=== PATIENT | male | born 1960 | race Caucasian/White ===

== ENCOUNTER 2018-02-14 08:45 | Inpatient (IN) | payer BC ==
[2018-02-14] MEDS ORDERED: Iohexol 240 (50 ml) PO STA (09:02)
[2018-02-14] MEDS ORDERED: Sodium Chloride 0.9% 1,000 ML IV ONE (09:02)
--- NOTE | 2018-02-14 09:10 | C.PDOC ---
History Of Present Illness 57 y/o male pt with PMHx of diverticulitis presents to the ER complaining of left abdominal pain for x5 days. Associated sx includes constipation. Pt denies fever, chills, nausea, vomiting, back pain, dysuria and hematuria. Pt notes he visited his doctor yesterday and received antibiotics. Time Seen by Provider: 02/14/18 08:48 Chief Complaint (Nursing): Abdominal Pain History Per: Patient History/Exam Limitations: no limitations Onset/Duration Of Symptoms: Days (x5) Current Symptoms Are (Timing): Still Present Location Of Pain/Discomfort: LLQ Past Medical History Reviewed: Historical Data, Nursing Documentation, Vital Signs Vital Signs: Last Vital Signs Temp 99.1 F 02/14/18 08:47 Pulse 100 H 02/14/18 08:47 Resp 18 02/14/18 08:47 BP 150/92 H 02/14/18 08:47 Pulse Ox 97 02/14/18 08:47 - Medical History PMH: Diverticulitis (treated 3 years ago), HTN, Hypercholesterolemia, Peripheral Edema Family History: States: Unknown Family Hx - Social History Hx Tobacco Use: Yes Hx Alcohol Use: Yes Hx Substance Use: No - Immunization History Hx Tetanus Toxoid Vaccination: No Hx Influenza Vaccination: No Hx Pneumococcal Vaccination: No Review Of Systems Except As Marked, All Systems Reviewed And Found Negative. Constitutional: Negative for: Fever, Chills Gastrointestinal: Positive for: Abdominal Pain (LLQ), Constipation. Negative for: Nausea, Vomiting Genitourinary: Negative for: Dysuria, Hematuria Musculoskeletal: Negative for: Back Pain Physical Exam - Physical Exam Appears: Non-toxic, No Acute Distress Skin: Normal Color, Warm, Dry Head: Normacephalic Eye(s): bilateral: Normal Inspection, EOMI Oral Mucosa: Moist Throat: Normal Neck: Normal ROM, Supple Chest: Symmetrical, No Deformity Cardiovascular: Rhythm Regular Respiratory: Normal Breath Sounds Gastrointestinal/Abdominal: Soft, Tenderness (LLQ), No Distention, No Guarding, No Rebound Back: No CVA Tenderness Extremity: Normal ROM (x4) Extremity: Bilateral: Atraumatic, Normal Color And Temperature Neurological/Psych: Oriented x3, Normal Speech, Normal Cognition Gait: Steady ED Course And Treatment - Laboratory Results Result Diagrams: 02/14/18 09:23 02/14/18 09:23 Lab Interpretation: Abnormal O2 Sat by Pulse Oximetry: 97 (RA) Pulse Ox Interpretation: Normal - CT Scan/US No standard instances Other Rad Studies (CT/US): Read By Radiologist, Radiology Report Reviewed CT/US Interpretation: FINDINGS: LOWER THORAX: Mild bibasilar atelectasis. No visible pleural effusion or pneumothorax. LIVER: Hypoattenuation of the liver compatible with hepatic steatosis. GALLBLADDER AND BILE DUCTS: Unremarkable. PANCREAS: Pancreas itself appears grossly unremarkable. Again seen is a similar soft tissue finding adjacent to the pancreas which appears distinct from the pancreas but inseparable from the medial aspect of the duodenum grossly without significant interval change. SPLEEN: Unremarkable. ADRENALS: Bilateral adrenal gland nodules. Largest nodule, left medial limb measures approximately 2.5 cm and contains focal fat. Lateral limb left adrenal gland measures approximately 1.4 cm without discrete fatty focus. Tiny lateral limb right adrenal gland nodule measures approximately 0.7 cm. KIDNEYS AND URETERS: The k idneys enhance symmetrically. No hydronephrosis or obstructing renal calculus. 4 mm probable fatty focus, left lower pole kidney may represent an AML. BLADDER: The urinary bladder appears unremarkable. REPRODUCTIVE: Unremarkable. APPENDIX: The appendix appears within normal limits of caliber. No secondary signs of acute appendicitis. BOWEL: The stomach is nondistended. The bowel loops appear within normal limits of caliber without evidence of intestinal obstruction. Extensive colonic wall thickening, inflammatory changes and associated fluid in the left lower quadrant consistent with acute diverticulitis of the sigmoid colon. PERITONEUM: No definite free air. LYMPH NODES: No bul ky lymphadenopathy identified. VASCULATURE: No aortic aneurysm. Atherosclerotic calcification or mural plaque present. BONES: Degenerative changes. OTHER FINDINGS: None. IMPRESSION: Extensive colonic wall thickening, inflammatory changes and associated fluid in the left lower quadrant consistent with acute diverticulitis of the sigmoid colon. Bilateral adrenal gland nodules. Largest nodule, left medial limb measures approximately 2.5 cm and contains focal fat consistent with a myelolipoma. Indeterminate lateral limb left adrenal gland measures approximately 1.4 cm without discrete fatty focus. Indeterminate tiny lateral limb right adrenal gland nodule measures approximately 0.7 cm. 4 mm probable fatty focus involving the left lower pole kidney may represent an angiomyolipoma. Again seen is a similar soft tissue finding adjacent to the pancreas which appears distinct from the pancreas but inseparable from the medial aspect of the duodenum grossly without significant interval change. Hypoattenuation of the liver compatible with hepatic steatosis. Progress Note: Treated with IVF NSS and toradol. Case discussed and patient evaluated by Dr Riggins who request admission. Treated peralta\ith flagyl and cipro Reassessment Condition: Improved - Physician Consult Information Physician Contacted: Humberto Riggins Outcome Of Conversation: admit Medical Decision Making Medical Decision Making: Impression: LLQ abdominal pain Plans: -- CT abd and pelvis -- Chem lab -- blood work -- Iohexol -- IV fluids -- UA Disposition Discussed With Dr.: Humberto Riggins Doctor Will See Patient In The: Hospital - Disposition Disposition: HOSPITALIZED Disposition Time: 12:00 Condition: STABLE - POA Present On Arrival: None - Clinical Impression Clinical Impression: Acute diverticulitis - PA / [employer] / Resident Statement MD/ has reviewed & agrees with the documentation as recorded. - Scribe Statement The provider has reviewed the documentation as recorded by the Josephineibdeana Elizabeth Do All medical record entries made by the Scribe were at my direction and personally dictated by me. I have reviewed the chart and agree that the record accurately reflects my personal performance of the history, physical exam, medical decision making, and the department course for this patient. I have also personally directed, reviewed, and agree with the discharge instructions and disposition. Decision To Admit - Pt Status Changed To: Hospital Disposition Of: Inpatient - Admit Certification Admit to Inpatient:: After my assessment, the patient will require hospitalization for at least two midnights. This is because of the severity of symptoms shown, intensity of services needed, and/or the medical risk in this patient being treated as an outpatient. - InPatient: Physician Admission Certification:: Diverticulitis - . Bed Request Type: Regular Admitting Physician: Humberto Riggins Patient Diagnosis: Acute diverticulitis
[2018-02-14] MEDS ORDERED: Iohexol 240 (50 ml) ONE (09:23)
[2018-02-14] MEDS ORDERED: Sodium Chloride 0.9% 1,000 ML ONE (09:23)
[2018-02-14 09:47] LABS: SQUAMOUS EPITHIAL 4 /hpf (0-5); URINE BACTERIA RARE (<OCC); URINE BILIRUBIN NEGATIVE (NEGATIVE); URINE BLOOD 2+ (NEGATIVE); URINE CLARITY Clear (Clear); URINE COLOR Yellow (YELLOW); URINE GLUCOSE (UA) NORMAL (Normal); URINE LEUKOCYTE ESTERASE NEG Leu/uL (Negative); URINE PROTEIN 3+ mg/dL (NEGATIVE); URINE UROBILINOGEN NORMAL mg/dL (0.2-1.0)
[2018-02-14 09:48] LABS: BASO # 0.1 K/uL (0.0-0.2); BASO % 0.4 % (0.0-2.0); EOS # 0.1 K/uL (0.0-0.7); EOS % 0.9 % (0.0-4.0); HEMOGLOBIN 13.7 g/dL (12.0-18.0); LYMPH # 1.5 K/uL (1.0-4.3); LYMPH % 11.7 % (20.0-40.0); MEAN CELL VOLUME 86.2 fL (80.0-94.0); MEAN CORPUSCULAR HEMOGLOBIN 30.4 pg (27.0-31.0); MEAN CORPUSCULAR HGB CONC 35.3 g/dL (33.0-37.0); MEAN PLATELET VOLUME 9.7 fL (7.2-11.7); MONO # 0.8 K/uL (0.0-0.8); MONO % 6.5 % (0.0-10.0); NEUT # 10.1 K/uL (1.8-7.0); NEUT % 80.5 % (50.0-75.0); NRBC % 0.1 % (0.0-2.0); RBC 4.5 Mil/uL (4.40-5.90); RED CELL DISTRIBUTION WIDTH 14.5 % (11.5-14.5); WHITE BLOOD COUNT 12.5 K/uL (4.8-10.8)
[2018-02-14 09:59] LABS: ALB/GLOB RATIO 1.4 (1.0-2.1); ALBUMIN 4.6 g/dL (3.5-5.0); ALT/SGPT 45 U/L (21-72); AST/SGOT 29 U/L (17-59); BLOOD UREA NITROGEN 13 mg/dL (9-20); CALCIUM 9.4 mg/dl (8.6-10.4); GFR NON-AFRICAN AMERICAN > 60
[2018-02-14] MEDS ORDERED: Iodixanol 320 MG/ML 100 ML BOTTLE IV ONE (10:50)
[2018-02-14] MEDS ORDERED: Ciprofloxacin 400mg/200ml D5W 400 MG/200 ML BAG IV STA (11:51)
[2018-02-14] MEDS ORDERED: metroNIDAZOLE IV 500 mg/100 ml 500 MG/100 ML BAG IV SCH ×2 (12:00→15:00)
--- NOTE | 2018-02-14 12:21 | CT ---
PROCEDURE: CT Abdomen and Pelvis with oral and IV contrast. HISTORY: pain COMPARISON: CT abdomen and pelvis with contrast performed 10/14/15 TECHNIQUE: Contiguous axial images of the abdomen and pelvis. Oral and IV contrast was administered. Coronal and Sagittal reformats generated and reviewed. Contrast dose: 998.01 Radiation dose: Total exam DLP = 998.01 mGy-cm. This CT exam was performed using one or more of the following dose reduction techniques: Automated exposure control, adjustment of the mA and/or kV according to patient size, and/or use of iterative reconstruction technique. FINDINGS: LOWER THORAX: Mild bibasilar atelectasis. No visible pleural effusion or pneumothorax. LIVER: Hypoattenuation of the liver compatible with hepatic steatosis. GALLBLADDER AND BILE DUCTS: Unremarkable. PANCREAS: Pancreas itself appears grossly unremarkable. Again seen is a similar soft tissue finding adjacent to the pancreas which appears distinct from the pancreas but inseparable from the medial aspect of the duodenum grossly without significant interval change. SPLEEN: Unremarkable. ADRENALS: Bilateral adrenal gland nodules. Largest nodule, left medial limb measures approximately 2.5 cm and contains focal fat. Lateral limb left adrenal gland measures approximately 1.4 cm without discrete fatty focus. Tiny lateral limb right adrenal gland nodule measures approximately 0.7 cm. KIDNEYS AND URETERS: The kidneys enhance symmetrically. No hydronephrosis or obstructing renal calculus. 4 mm probable fatty focus, left lower pole kidney may represent an AML. BLADDER: The urinary bladder appears unremarkable. REPRODUCTIVE: Unremarkable. APPENDIX: The appendix appears within normal limits of caliber. No secondary signs of acute appendicitis. BOWEL: The stomach is nondistended. The bowel loops appear within normal limits of caliber without evidence of intestinal obstruction. Extensive colonic wall thickening, inflammatory changes and associated fluid in the left lower quadrant consistent with acute diverticulitis of the sigmoid colon. PERITONEUM: No definite free air. LYMPH NODES: No bulky lymphadenopathy identified. VASCULATURE: No aortic aneurysm. Atherosclerotic calcification or mural plaque present. BONES: Degenerative changes. OTHER FINDINGS: None. IMPRESSION: Extensive colonic wall thickening, inflammatory changes and associated fluid in the left lower quadrant consistent with acute diverticulitis of the sigmoid colon. Bilateral adrenal gland nodules. Largest nodule, left medial limb measures approximately 2.5 cm and contains focal fat consistent with a myelolipoma. Indeterminate lateral limb left adrenal gland measures approximately 1.4 cm without discrete fatty focus. Indeterminate tiny lateral limb right adrenal gland nodule measures approximately 0.7 cm. 4 mm probable fatty focus involving the left lower pole kidney may represent an angiomyolipoma. Again seen is a similar soft tissue finding adjacent to the pancreas which appears distinct from the pancreas but inseparable from the medial aspect of the duodenum grossly without significant interval change. Hypoattenuation of the liver compatible with hepatic steatosis. Additional findings as above.
[2018-02-14] MEDS ORDERED: Ciprofloxacin 400mg/200ml D5W 400 MG/200 ML BAG IVPB ONE (12:39)
[2018-02-14] MEDS ORDERED: HYDROmorphone 1 mg/ml ISec IVP PRN (14:57)
--- NOTE | 2018-02-14 15:06 | CP.PCM.CON ---
History of Present Illness - History of Present Illness History of Present Illness: Surgery 57 y/o male pt with PMHx of diverticulitis presents to the ER complaining of left abdominal pain for x5 days. Associated sx includes constipation. Pt denies fever, chills, nausea, vomiting, back pain, dysuria and hematuria. Pt notes he visited his doctor yesterday and received antibiotics. Pt had multiple episodes of diverticulitits in the past. Last attack was in 2016 and had colonoscopy w dr tena in 2016. CT showed diverticulitis on sigmoid colon and had leukocytosis . Surgery is consulted to evlauate for diverticulitit s PMH diverticulitis Review of Systems - Review of Systems All systems: reviewed and no additional remarkable complaints except Review of Systems: See HPI Past Patient History - Past Medical History & Family History Past Medical History?: Yes - Past Social History Smoking Status: Former Smoker - CARDIAC Hx Hypercholesterolemia: Yes Hx Hypertension: Yes Hx Peripheral Edema: Yes - PULMONARY Hx Respiratory Disorders: No - NEUROLOGICAL Hx Neurological Disorder: No - HEENT Hx HEENT Problems: No - RENAL Hx Chronic Kidney Disease: No - ENDOCRINE/METABOLIC Hx Endocrine Disorders: No - HEMATOLOGICAL/ONCOLOGICAL Hx Blood Disorders: No - INTEGUMENTARY Hx Dermatological Problems: No - MUSCULOSKELETAL/RHEUMATOLOGICAL Hx Falls: No - GASTROINTESTINAL Hx Diverticulitis: Yes (treated 3 years ago) - GENITOURINARY/GYNECOLOGICAL Hx Genitourinary Disorders: No - PSYCHIATRIC Hx Substance Use: No - SURGICAL HISTORY Hx Surgeries: No - ANESTHESIA Hx Anesthesia: No Meds Allergies/Adverse Reactions: Allergies Allergy/AdvReac Type Severity Reaction Status Date / Time No Known Allergies Allergy Verified 10/14/15 19:30 - Medications Medications: Current Medications Acetaminophen (Tylenol 325mg Tab) 975 mg PO Q6 PRN PRN Reason: Fever >100.4 F Hydromorphone HCl (Dilaudid) 1 mg IVP Q4H PRN PRN Reason: Pain, severe (8-10) Metronidazole (Flagyl) 500 mg in 100 mls @ 100 mls/hr IV STAT [facility]; Protocol Dextrose/Sodium Chloride (Dextrose 5%/0.45% Ns 1000 Ml) 1,000 mls @ 150 mls/hr IV .Q6H40M [facility] Piperacillin Sod/Tazobactam (Sod 3.375 gm/ Sodium Chloride) 100 mls @ 200 mls/hr IVPB Q8H [facility]; Protocol Ketorolac Tromethamine (Toradol) 30 mg IVP Q6 PRN PRN Reason: Pain, moderate (4-7) Ondansetron HCl (Zofran Inj) 4 mg IVP Q4 PRN PRN Reason: Nausea/Vomiting Physical Exam - Constitutional Appears: No Acute Distress - Head Exam Head Exam: ATRAUMATIC, NORMAL INSPECTION, NORMOCEPHALIC - Eye Exam Eye Exam: EOMI, Normal appearance, PERRL Pupil Exam: NORMAL ACCOMODATION, PERRL - ENT Exam ENT Exam: Mucous Membranes Moist - Neck Exam Neck exam: Positive for: Normal Inspection - Respiratory Exam Respiratory Exam: NORMAL BREATHING PATTERN - Cardiovascular Exam Cardiovascular Exam: REGULAR RHYTHM - GI/Abdominal Exam GI & Abdominal Exam: Soft, Tenderness. absent: Distended, Firm, Guarding, Hernia, Mass, Rebound, Rigid Additional comments: LLQ TTP - Exam Exam: NORMAL INSPECTION - Extremities Exam Extremities exam: Positive for: normal inspection - Back Exam Back exam: NORMAL INSPECTION - Neurological Exam Neurological exam: Alert, CN II-XII Intact, Normal Gait, Oriented x3, Reflexes Normal - Psychiatric Exam Psychiatric exam: Normal Affect, Normal Mood - Skin Skin Exam: Dry, Intact, Normal Color, Warm Results - Vital Signs Recent Vital Signs: Last Vital Signs Temp 98.6 F 02/14/18 14:04 Pulse 71 02/14/18 14:04 Resp 20 02/14/18 14:04 BP 133/84 02/14/18 14:04 Pulse Ox 97 02/14/18 14:04 - Labs Result Diagrams: 02/14/18 09:23 02/14/18 09:23 Labs: Laboratory Results - last 24 hr 02/14/18 02/14/18 02/14/18 09:23 09:23 09:23 WBC 12.5 H RBC 4.50 Hgb 13.7 Hct 38.8 MCV 86.2 MCH 30.4 MCHC 35.3 RDW 14.5 Plt Count 228 MPV 9.7 Neut % (Auto) 80.5 H Lymph % (Auto) 11.7 L Dickey % (Auto) 6.5 Eos % (Auto) 0.9 Baso % (Auto) 0.4 Neut # (Auto) 10.1 H Lymph # (Auto) 1.5 Dickey # (Auto) 0.8 Eos # (Auto) 0.1 Baso # (Auto) 0.1 Sodium 138 Potassium 4.1 Chloride 101 Carbon Dioxide 25 Anion Gap 16 BUN 13 Creatinine 0.9 Est GFR ( Amer) > 60 Est GFR (Non-Af Amer) > 60 Random Glucose 146 H Calcium 9.4 Total Bilirubin 0.7 AST 29 ALT 45 Alkaline Phosphatase 79 Total Protein 8.0 Albumin 4.6 Globulin 3.4 Albumin/Globulin Ratio 1.4 Urine Color Yellow Urine Clarity Clear Urine pH 5.0 Ur Specific [place] 1.018 Urine Protein 3+ H Urine Glucose (UA) Normal Urine Ketones Negative Urine Blood 2+ H Urine Nitrate Negative Urine Bilirubin Negative Urine Urobilinogen Normal Ur Leukocyte Esterase Neg Urine WBC (Auto) 14 H Urine RBC (Auto) 3 Ur Squamous Epith Cells 4 Urine Bacteria Rare Assessment & Plan - Assessment and Plan (Free Text) Assessment: Sigmoid diverticulitis -NPO -IVF-ABX -GI on board -DVT/ GI ppx Seen and examined w Dr. Hawk
[2018-02-14] MEDS: Dextrose 5%/0.45% NS 1,000 ML IV SCH ×2 (15:36→22:01)
[2018-02-14] MEDS: Piperacillin/Tazobact 3.375 GM in Sodium Chloride 100 ML IVPB SCH ×2 (16:32→22:01)
[2018-02-14] MEDS: (Novolin R) Insulin Human Regular 100 units/ml vial SC SCH (21:26)
--- NOTE | 2018-02-14 21:42 | HP ---
HISTORY OF PRESENT ILLNESS: This 57-year-old gentleman, who was brought in with abdominal pain, started about 2 days ago. The patient was seen in the office yesterday and was found to have a minimal tenderness in the left lower quadrant. The patient with a history of hypertension, diabetes, and recurrent diverticulitis. He has been followed by Dr. Villeal, has had a colonoscopy done in the past. The patient was given Cipro yesterday, but pain got worse and came to the emergency room, and had a CT done, the report of which is pending. White count is 12.8. The patient is recommended admission. Care plan was explained to the patient and his who is at the bedside. PERSONAL HISTORY: Does not smoke, does not drink. ALLERGIES: Denied. FAMILY HISTORY: Father has history of hypertension, mother also has hypertension and diabetes. His mother also had myxoma of the left atrium for which she underwent resection in her late 70s. MEDICATIONS: At home included amlodipine, Cozaar, and metformin. He is also on Vytorin 01/13 one a day. The patient also has been seen by Dr. Silvestre for arthritis. REVIEW OF SYSTEMS: GENERAL: Low-grade temperature started early this morning. No weakness. No headaches, no dizziness. EYES: No visual disturbances. NECK: No swollen glands. RESPIRATORY: Negative for cough or hemoptysis. CARDIAC: No chest pain. History of hypertension. GASTROINTESTINAL: Recurrent abdominal pain, diverticulitis in the past, possible small abscess along with diverticulitis, treated conservatively. GENITOURINARY: Negative for hematuria, dysuria. He has been seen by Dr. Law in the past. MUSCULOSKELETAL: Low back pain and joint pains. PERIPHERAL VASCULAR SYSTEM: No claudication. NEUROLOGIC: No TIAs, no CVAs. PSYCH: No evidence of depression. PHYSICAL EXAMINATION: GENERAL: A middle-aged gentleman who was conscious, alert, well oriented, in no acute distress. VITAL SIGNS: He is 5 feet 7 inches and weighs about 220 pounds. HEENT: Head is normocephalic. Eyes: No pallor, no icterus. Mouth: No exudates. NECK: Supple. LUNGS: Clear to auscultation bilaterally. HEART: PMI is normal. S1, S2 are normal. Soft S4 gallop. Grade 1-2/6 systolic ejection murmur in mitral area. ABDOMEN: Slightly distended and tenderness in the left lower quadrant. Guaiac was negative. EXTREMITIES: No cyanosis, clubbing, or edema. Distal pulses are intact. NEUROLOGIC: The patient is awake, alert, oriented x3. No focal signs. PSYCH: No evidence of depression. LABORATORY DATA: CBC shows white count of 12.8. Chemistries and CAT scans are pending. ASSESSMENT: A 57-year-old gentleman with history of hypertension, diabetes, and cholesterol, has presented with possible diverticulitis. PLAN: To obtain the CAT scan, GI consultation, IV fluids. May need surgical consultation. Humberto Riggins MD
[2018-02-14] MEDS: Metoprolol Succinate 25 mg XL Tab PO SCH (21:55)
[2018-02-15] MEDS: Dextrose 5%/0.45% NS 1,000 ML IV SCH ×3 (05:00→23:45)
[2018-02-15] MEDS: Piperacillin/Tazobact 3.375 GM in Sodium Chloride 100 ML IVPB SCH ×3 (06:00→22:31)
[2018-02-15 07:31] LABS: BASO % 0.3 % (0.0-2.0); EOS # 0.1 K/uL (0.0-0.7); EOS % 1.6 % (0.0-4.0); HEMOGLOBIN 12.7 g/dL (12.0-18.0); LYMPH # 1.4 K/uL (1.0-4.3); LYMPH % 15.2 % (20.0-40.0); MEAN CELL VOLUME 85.5 fL (80.0-94.0); MEAN CORPUSCULAR HEMOGLOBIN 30.5 pg (27.0-31.0); MEAN CORPUSCULAR HGB CONC 35.7 g/dL (33.0-37.0); MEAN PLATELET VOLUME 9.4 fL (7.2-11.7); MONO # 0.7 K/uL (0.0-0.8); MONO % 7.3 % (0.0-10.0); NEUT # 6.9 K/uL (1.8-7.0); NEUT % 75.6 % (50.0-75.0); NRBC % 0.1 % (0.0-2.0); RBC 4.17 Mil/uL (4.40-5.90); RED CELL DISTRIBUTION WIDTH 14.3 % (11.5-14.5); WHITE BLOOD COUNT 9.1 K/uL (4.8-10.8)
[2018-02-15] MEDS: (Novolin R) Insulin Human Regular 100 units/ml vial SC SCH ×4 (07:31→22:30)
[2018-02-15 08:07] LABS: ALB/GLOB RATIO 1.3 (1.0-2.1); ALT/SGPT 32 U/L (21-72); AST/SGOT 22 U/L (17-59); BLOOD UREA NITROGEN 10 mg/dL (9-20); CALCIUM 8.8 mg/dl (8.6-10.4); GFR NON-AFRICAN AMERICAN > 60
--- NOTE | 2018-02-15 09:07 | CP.PCM.PN ---
Subjective - Date & Time of Evaluation Date of Evaluation: 02/15/18 Time of Evaluation: 09:05 - Subjective Subjective: Surgery: Dr. Hawk Pt seen and examined. No acute overnight events. Pt states he feels a lot better and his abdominal pain has mostly resolved. He denies any episodes of vomiting or diarrhea. Denies fevers/chills. Objective - Vital Signs/Intake and Output Vital Signs (last 24 hours): Temp Pulse Resp BP Pulse Ox 98.7 F 73 20 120/70 97 02/15/18 08:33 02/15/18 08:33 02/15/18 08:33 02/15/18 08:33 02/15/18 08:33 Intake and Output: 02/15/18 02/15/18 06:59 18:59 Intake Total 2380 Output Total 300 Balance 2080 - Medications Medications: Current Medications Acetaminophen (Tylenol 325mg Tab) 975 mg PO Q6 PRN PRN Reason: Fever >100.4 F Amlodipine Besylate (Norvasc) 5 mg PO DAILY [facility] Heparin Sodium (Porcine) (Heparin) 5,000 units SC BID [facility] Last Admin: 02/14/18 21:52 Dose: 5,000 units Hydromorphone HCl (Dilaudid) 1 mg IVP Q4H PRN PRN Reason: Pain, severe (8-10) Metronidazole (Flagyl) 500 mg in 100 mls @ 100 mls/hr IV STAT [facility]; Protocol Dextrose/Sodium Chloride (Dextrose 5%/0.45% Ns 1000 Ml) 1,000 mls @ 150 mls/hr IV .Q6H40M [facility] Last Admin: 02/15/18 05:00 Dose: 150 mls/hr Piperacillin Sod/Tazobactam (Sod 3.375 gm/ Sodium Chloride) 100 mls @ 200 mls/hr IVPB Q8H [facility]; Protocol Last Admin: 02/15/18 06:00 Dose: 200 mls/hr Insulin Human Regular (Novolin R) 0 unit SC ACHS [facility]; Protocol Last Admin: 02/15/18 07:31 Dose: Not Given Ketorolac Tromethamine (Toradol) 30 mg IVP Q6 PRN PRN Reason: Pain, moderate (4-7) Losartan Potassium (Cozaar) 50 mg PO DAILY [facility] Last Admin: 02/14/18 18:33 Dose: 50 mg Metoprolol Succinate (Toprol Xl) 25 mg PO DAILY [facility] Last Admin: 02/14/18 21:55 Dose: 25 mg Ondansetron HCl (Zofran Inj) 4 mg IVP Q4 PRN PRN Reason: Nausea/Vomiting Pantoprazole Sodium (Protonix Ec Tab) 40 mg PO DAILY [facility] Rosuvastatin Calcium (Crestor) 5 mg PO HS [facility] Last Admin: 02/14/18 21:52 Dose: 5 mg - Labs Labs: 02/15/18 07:20 02/15/18 07:20 - Constitutional Appears: Well, No Acute Distress - Head Exam Head Exam: ATRAUMATIC, NORMOCEPHALIC - Eye Exam Eye Exam: Normal appearance - ENT Exam ENT Exam: Mucous Membranes Moist - Respiratory Exam Respiratory Exam: NORMAL BREATHING PATTERN - Cardiovascular Exam Cardiovascular Exam: RRR - GI/Abdominal Exam GI & Abdominal Exam: Soft. absent: Distended, Guarding, Tenderness, Rebound - Neurological Exam Neurological Exam: Alert, Awake, Oriented x3 - Skin Skin Exam: Dry, Warm Assessment and Plan - Assessment and Plan (Free Text) Assessment: 57M with diverticulitis Plan: - ok to start CLD from surgical standpoint - f/u GI recs - cont ABX - d/w Dr. Kenn Yun
[2018-02-15] MEDS: Pantoprazole 40 mg EC Tab PO SCH (10:30)
[2018-02-15] MEDS: Metoprolol Succinate 25 mg XL Tab PO SCH (10:30)
--- NOTE | 2018-02-15 11:09 | CP.PCM.CON ---
History of Present Illness - History of Present Illness History of Present Illness: This is a 57 year old man admitted 02/14/2018 with abdominal pain. Patient has had episodes of diverticulitis in November,, and September,. He presented to the ER yesterday with a five-day history of LLQ pain described as pressure, constant, with constipation for three days. He denies having fever, chills, nausea, vomiting, difficulty swallowing, heartburn, loss of appetite, loss of weight, diarrhea, and rectal bleeding. On evaluation in the ER, the temperature was 99.1, and there was tenderness in the LLQ but no rebound or guarding. The WBC count was elevated at 12,500. CT scan showed extensive colonic wall thickening, inflammatory changes and fluid in the LLQ consistent with diverticulitis. Review of Systems - Review of Systems All systems: reviewed and no additional remarkable complaints except - Constitutional Constitutional: absent: Chills, Fever - Gastrointestinal Gastrointestinal: Abdominal Pain, Constipation. absent: Diarrhea, Dysphagia, Heartburn, Hematochezia, Nausea, Vomiting - Genitourinary Genitourinary: absent: Dysuria, Hematuria - Musculoskeletal Musculoskeletal: absent: Back Pain Past Patient History - Past Medical History & Family History Past Medical History?: Yes - Past Social History Smoking Status: Former Smoker - CARDIAC Hx Hypercholesterolemia: Yes Hx Hypertension: Yes Hx Peripheral Edema: Yes - PULMONARY Hx Respiratory Disorders: No Hx Sleep Apnea: Yes - NEUROLOGICAL Hx Neurological Disorder: No - HEENT Hx HEENT Problems: No - RENAL Hx Chronic Kidney Disease: No - ENDOCRINE/METABOLIC Hx Endocrine Disorders: No - HEMATOLOGICAL/ONCOLOGICAL Hx Blood Disorders: No - INTEGUMENTARY Hx Dermatological Problems: No - MUSCULOSKELETAL/RHEUMATOLOGICAL Hx Falls: No - GASTROINTESTINAL Hx Diverticulitis: Yes (treated 3 years ago) Hx Gastritis: Yes - GENITOURINARY/GYNECOLOGICAL Hx Genitourinary Disorders: No - PSYCHIATRIC Hx Substance Use: No - SURGICAL HISTORY Hx Surgeries: No - ANESTHESIA Hx Anesthesia: No Meds Allergies/Adverse Reactions: Allergies Allergy/AdvReac Type Severity Reaction Status Date / Time No Known Allergies Allergy Verified 10/14/15 19:30 - Medications Medications: Current Medications Acetaminophen (Tylenol 325mg Tab) 975 mg PO Q6 PRN PRN Reason: Fever >100.4 F Amlodipine Besylate (Norvasc) 5 mg PO DAILY [facility] Heparin Sodium (Porcine) (Heparin) 5,000 units SC BID [facility] Last Admin: 02/14/18 21:52 Dose: 5,000 units Hydromorphone HCl (Dilaudid) 1 mg IVP Q4H PRN PRN Reason: Pain, severe (8-10) Metronidazole (Flagyl) 500 mg in 100 mls @ 100 mls/hr IV STAT [facility]; Protocol Dextrose/Sodium Chloride (Dextrose 5%/0.45% Ns 1000 Ml) 1,000 mls @ 150 mls/hr IV .Q6H40M [facility] Last Admin: 02/15/18 05:00 Dose: 150 mls/hr Piperacillin Sod/Tazobactam (Sod 3.375 gm/ Sodium Chloride) 100 mls @ 200 mls/hr IVPB Q8H [facility]; Protocol Last Admin: 02/15/18 06:00 Dose: 200 mls/hr Insulin Human Regular (Novolin R) 0 unit SC ACHS [facility]; Protocol Last Admin: 02/15/18 07:31 Dose: Not Given Ketorolac Tromethamine (Toradol) 30 mg IVP Q6 PRN PRN Reason: Pain, moderate (4-7) Losartan Potassium (Cozaar) 50 mg PO DAILY [facility] Last Admin: 02/14/18 18:33 Dose: 50 mg Metoprolol Succinate (Toprol Xl) 25 mg PO DAILY [facility] Last Admin: 02/14/18 21:55 Dose: 25 mg Ondansetron HCl (Zofran Inj) 4 mg IVP Q4 PRN PRN Reason: Nausea/Vomiting Pantoprazole Sodium (Protonix Ec Tab) 40 mg PO DAILY [facility] Rosuvastatin Calcium (Crestor) 5 mg PO HS [facility] Last Admin: 02/14/18 21:52 Dose: 5 mg Physical Exam - Constitutional Appears: No Acute Distress - Head Exam Head Exam: ATRAUMATIC, NORMOCEPHALIC - Eye Exam Eye Exam: EOMI, PERRL - Neck Exam Neck exam: Negative for: Lymphadenopathy, Thyromegaly - Respiratory Exam Respiratory Exam: NORMAL BREATHING PATTERN. absent: Rales, Rhonchi, Wheezes - Cardiovascular Exam Cardiovascular Exam: REGULAR RHYTHM, +S1, +S2. absent: Gallop, Rubs, Systolic Murmur - GI/Abdominal Exam GI & Abdominal Exam: Normal Bowel Sounds, Soft, Tenderness. absent: Mass, Organomegaly Additional comments: Mild LLQ tenderness to direct palpation without rebound or guarding - Rectal Exam Rectal Exam: Deferred - Extremities Exam Extremities exam: Negative for: calf tenderness, pedal edema Results - Vital Signs Recent Vital Signs: Last Vital Signs Temp 98.7 F 02/15/18 08:33 Pulse 73 02/15/18 08:33 Resp 20 02/15/18 08:33 BP 120/70 02/15/18 08:33 Pulse Ox 97 02/15/18 08:33 - Labs Result Diagrams: 02/15/18 07:20 02/15/18 07:20 Labs: Laboratory Results - last 24 hr 02/14/18 02/14/18 02/15/18 17:29 21:10 02:21 WBC RBC Hgb Hct MCV MCH MCHC RDW Plt Count MPV Neut % (Auto) Lymph % (Auto) [place] % (Auto) Eos % (Auto) Baso % (Auto) Neut # (Auto) Lymph # (Auto) [place] # (Auto) Eos # (Auto) Baso # (Auto) Sodium Potassium Chloride Carbon Dioxide Anion Gap BUN Creatinine Est GFR ( Amer) Est GFR (Non-Af Amer) POC Glucose (mg/dL) 124 H 129 H 130 H Random Glucose Calcium Total Bilirubin AST ALT Alkaline Phosphatase Total Protein Albumin Globulin Albumin/Globulin Ratio 02/15/18 02/15/18 02/15/18 07:05 07:20 07:20 WBC 9.1 RBC 4.17 L Hgb 12.7 Hct 35.7 MCV 85.5 MCH 30.5 MCHC 35.7 RDW 14.3 Plt Count 216 MPV 9.4 Neut % (Auto) 75.6 H Lymph % (Auto) 15.2 L [place] % (Auto) 7.3 Eos % (Auto) 1.6 Baso % (Auto) 0.3 Neut # (Auto) 6.9 Lymph # (Auto) 1.4 [place] # (Auto) 0.7 Eos # (Auto) 0.1 Baso # (Auto) 0.0 Sodium 137 Potassium 4.1 Chloride 100 Carbon Dioxide 29 Anion Gap 12 BUN 10 Creatinine 1.0 Est GFR ( Amer) > 60 Est GFR (Non-Af Amer) > 60 POC Glucose (mg/dL) 149 H Random Glucose 143 H Calcium 8.8 Total Bilirubin 0.8 AST 22 ALT 32 Alkaline Phosphatase 72 Total Protein 7.0 Albumin 4.0 Globulin 3.0 Albumin/Globulin Ratio 1.3 Assessment & Plan (1) Acute diverticulitis Assessment and Plan: Patient has abdominal pain secondary to acute diverticulitis. This is evidently the third episode. He has not had complications such as fistula, perforation or abscess. Recommend antibiotics and advance diet as tolerated. Status: Acute
[2018-02-15] MEDS ORDERED: Influenza Vaccine 60 MCG/0.5 ML SYR (3 yr & up) IM ONE (16:00)
[2018-02-16] MEDS: Dextrose 5%/0.45% NS 1,000 ML IV SCH ×2 (04:30→10:11)
[2018-02-16] MEDS: Piperacillin/Tazobact 3.375 GM in Sodium Chloride 100 ML IVPB SCH ×3 (06:00→22:29)
[2018-02-16] MEDS: (Novolin R) Insulin Human Regular 100 units/ml vial SC SCH ×4 (07:39→22:26)
[2018-02-16 09:13] VITALS: RESP 20
--- NOTE | 2018-02-16 09:49 | CP.PCM.PN ---
Subjective - Date & Time of Evaluation Date of Evaluation: 02/16/18 Time of Evaluation: 09:45 - Subjective Subjective: Surgery: Dr. Hawk Pt seen and examined. No acute overnight events. States he feels better and his abdominal pain is much improved. He is tolerating liquids and denies nausea/vomiting. Pt states he is having bowel movements. Denies fevers/chills. Objective - Vital Signs/Intake and Output Vital Signs (last 24 hours): Temp Pulse Resp BP Pulse Ox 98.2 F 77 20 99/57 L 95 02/16/18 07:00 02/16/18 07:00 02/16/18 07:00 02/16/18 07:00 02/16/18 07:00 Intake and Output: 02/16/18 02/16/18 06:59 18:59 Intake Total 1100 Balance 1100 - Medications Medications: Current Medications Acetaminophen (Tylenol 325mg Tab) 975 mg PO Q6 PRN PRN Reason: Fever >100.4 F Amlodipine Besylate (Norvasc) 5 mg PO DAILY [facility] Last Admin: 02/15/18 10:30 Dose: 5 mg Heparin Sodium (Porcine) (Heparin) 5,000 units SC BID [facility] Last Admin: 02/15/18 18:03 Dose: 5,000 units Hydromorphone HCl (Dilaudid) 1 mg IVP Q4H PRN PRN Reason: Pain, severe (8-10) Metronidazole (Flagyl) 500 mg in 100 mls @ 100 mls/hr IV STAT [facility]; Protocol Piperacillin Sod/Tazobactam (Sod 3.375 gm/ Sodium Chloride) 100 mls @ 200 mls/hr IVPB Q8H [facility]; Protocol Last Admin: 02/16/18 06:00 Dose: 200 mls/hr Dextrose/Sodium Chloride (Dextrose 5%/0.45% Ns 1000 Ml) 1,000 mls @ 100 mls/hr IV .Q10H [facility] Last Admin: 02/16/18 04:30 Dose: 100 mls/hr Insulin Human Regular (Novolin R) 0 unit SC ACHS [facility]; Protocol Last Admin: 02/16/18 07:39 Dose: Not Given Ketorolac Tromethamine (Toradol) 30 mg IVP Q6 PRN PRN Reason: Pain, moderate (4-7) Losartan Potassium (Cozaar) 50 mg PO DAILY [facility] Last Admin: 02/15/18 10:30 Dose: 50 mg Metoprolol Succinate (Toprol Xl) 25 mg PO DAILY [facility] Last Admin: 02/15/18 10:30 Dose: 25 mg Ondansetron HCl (Zofran Inj) 4 mg IVP Q4 PRN PRN Reason: Nausea/Vomiting Pantoprazole Sodium (Protonix Ec Tab) 40 mg PO DAILY [facility] Last Admin: 02/15/18 10:30 Dose: 40 mg Rosuvastatin Calcium (Crestor) 5 mg PO HS [facility] Last Admin: 02/15/18 21:39 Dose: 5 mg - Labs Labs: 02/15/18 07:20 02/15/18 07:20 - Constitutional Appears: Well, No Acute Distress - Head Exam Head Exam: ATRAUMATIC, NORMOCEPHALIC - ENT Exam ENT Exam: Mucous Membranes Moist - Respiratory Exam Respiratory Exam: NORMAL BREATHING PATTERN - Cardiovascular Exam Cardiovascular Exam: RRR - GI/Abdominal Exam GI & Abdominal Exam: Soft. absent: Distended, Tenderness, Rebound - Neurological Exam Neurological Exam: Alert, Awake, Oriented x3 - Skin Skin Exam: Dry, Warm Assessment and Plan - Assessment and Plan (Free Text) Assessment: 57M with acute diverticulitis Plan: - advance to soft diet for lunch if ok with GI - clear for DC on PO ABX from surgical standpoint - d/w Dr. Kenn Yun
--- NOTE | 2018-02-16 09:57 | CP.PCM.PN ---
Subjective - Date & Time of Evaluation Date of Evaluation: 02/16/18 Time of Evaluation: 09:54 - Subjective Subjective: Events noted and Dr Florence note appreciated. Patient feels better with minimal pain. Tolerating diet so far. Objective - Vital Signs/Intake and Output Vital Signs (last 24 hours): Temp Pulse Resp BP Pulse Ox 98.2 F 77 20 99/57 L 95 02/16/18 07:00 02/16/18 07:00 02/16/18 07:00 02/16/18 07:00 02/16/18 07:00 Intake and Output: 02/16/18 02/16/18 06:59 18:59 Intake Total 1100 Balance 1100 - Medications Medications: Current Medications Acetaminophen (Tylenol 325mg Tab) 975 mg PO Q6 PRN PRN Reason: Fever >100.4 F Amlodipine Besylate (Norvasc) 5 mg PO DAILY [facility] Last Admin: 02/15/18 10:30 Dose: 5 mg Heparin Sodium (Porcine) (Heparin) 5,000 units SC BID [facility] Last Admin: 02/15/18 18:03 Dose: 5,000 units Hydromorphone HCl (Dilaudid) 1 mg IVP Q4H PRN PRN Reason: Pain, severe (8-10) Metronidazole (Flagyl) 500 mg in 100 mls @ 100 mls/hr IV STAT [facility]; Protocol Piperacillin Sod/Tazobactam (Sod 3.375 gm/ Sodium Chloride) 100 mls @ 200 mls/hr IVPB Q8H [facility]; Protocol Last Admin: 02/16/18 06:00 Dose: 200 mls/hr Dextrose/Sodium Chloride (Dextrose 5%/0.45% Ns 1000 Ml) 1,000 mls @ 100 mls/hr IV .Q10H [facility] Last Admin: 02/16/18 04:30 Dose: 100 mls/hr Insulin Human Regular (Novolin R) 0 unit SC ACHS [facility]; Protocol Last Admin: 02/16/18 07:39 Dose: Not Given Ketorolac Tromethamine (Toradol) 30 mg IVP Q6 PRN PRN Reason: Pain, moderate (4-7) Losartan Potassium (Cozaar) 50 mg PO DAILY [facility] Last Admin: 02/15/18 10:30 Dose: 50 mg Metoprolol Succinate (Toprol Xl) 25 mg PO DAILY [facility] Last Admin: 02/15/18 10:30 Dose: 25 mg Ondansetron HCl (Zofran Inj) 4 mg IVP Q4 PRN PRN Reason: Nausea/Vomiting Pantoprazole Sodium (Protonix Ec Tab) 40 mg PO DAILY [facility] Last Admin: 02/15/18 10:30 Dose: 40 mg Rosuvastatin Calcium (Crestor) 5 mg PO HS [facility] Last Admin: 02/15/18 21:39 Dose: 5 mg - Labs Labs: 02/15/18 07:20 02/15/18 07:20 - Constitutional Appears: No Acute Distress - Head Exam Head Exam: ATRAUMATIC, NORMOCEPHALIC - Eye Exam Eye Exam: EOMI, PERRL - Respiratory Exam Respiratory Exam: NORMAL BREATHING PATTERN - Cardiovascular Exam Cardiovascular Exam: REGULAR RHYTHM - GI/Abdominal Exam GI & Abdominal Exam: Guarding, Soft, Normal Bowel Sounds. absent: Tenderness Additional comments: Mild LLQ guarding. No mass or rebound - Extremities Exam Extremities Exam: Normal Inspection Assessment and Plan (1) Diverticulitis large intestine Assessment & Plan: Patient noted to have third bout of diverticulitis in last four years. Clinically improving on antibiotics. Would change to po and complete a 14 day course. Will review prior colonoscopy reports on office followup. Agree with plans for discharge if solid food is tolerated. Follow up with me in 2 weeks. Status: Acute (2) LLQ abdominal pain Assessment & Plan: as above Status: Acute
[2018-02-16] MEDS: Pantoprazole 40 mg EC Tab PO SCH (10:11)
[2018-02-16] MEDS: Metoprolol Succinate 25 mg XL Tab PO SCH (10:11)
--- NOTE | 2018-02-16 13:23 | CP.PCM.PN ---
Subjective - Date & Time of Evaluation Date of Evaluation: 02/16/18 Time of Evaluation: 13:22 - Subjective Subjective: better.much less pains. Objective - Vital Signs/Intake and Output Vital Signs (last 24 hours): Temp Pulse Resp BP Pulse Ox 98.2 F 77 20 99/57 L 95 02/16/18 07:00 02/16/18 07:00 02/16/18 07:00 02/16/18 07:00 02/16/18 07:00 Intake and Output: 02/16/18 02/16/18 06:59 18:59 Intake Total 1100 Balance 1100 - Medications Medications: Current Medications Acetaminophen (Tylenol 325mg Tab) 975 mg PO Q6 PRN PRN Reason: Fever >100.4 F Amlodipine Besylate (Norvasc) 5 mg PO DAILY [facility] Last Admin: 02/16/18 10:11 Dose: 5 mg Metronidazole (Flagyl) 500 mg in 100 mls @ 100 mls/hr IV STAT [facility]; Protocol Piperacillin Sod/Tazobactam (Sod 3.375 gm/ Sodium Chloride) 100 mls @ 200 mls/hr IVPB Q8H [facility]; Protocol Last Admin: 02/16/18 06:00 Dose: 200 mls/hr Insulin Human Regular (Novolin R) 0 unit SC ACHS [facility]; Protocol Last Admin: 02/16/18 11:12 Dose: Not Given Losartan Potassium (Cozaar) 50 mg PO DAILY [facility] Last Admin: 02/16/18 10:11 Dose: 50 mg Metoprolol Succinate (Toprol Xl) 25 mg PO DAILY [facility] Last Admin: 02/16/18 10:11 Dose: 25 mg Ondansetron HCl (Zofran Inj) 4 mg IVP Q4 PRN PRN Reason: Nausea/Vomiting Pantoprazole Sodium (Protonix Ec Tab) 40 mg PO DAILY [facility] Last Admin: 02/16/18 10:11 Dose: 40 mg Rosuvastatin Calcium (Crestor) 5 mg PO HS [facility] Last Admin: 02/15/18 21:39 Dose: 5 mg - Labs Labs: 02/15/18 07:20 02/15/18 07:20 - Constitutional Appears: No Acute Distress - Head Exam Head Exam: NORMOCEPHALIC - Eye Exam Eye Exam: Normal appearance - ENT Exam ENT Exam: Normal Exam - Respiratory Exam Respiratory Exam: Clear to Ausculation Bilateral - Cardiovascular Exam Cardiovascular Exam: REGULAR RHYTHM - GI/Abdominal Exam GI & Abdominal Exam: Soft - Extremities Exam Extremities Exam: absent: Pedal Edema - Neurological Exam Neurological Exam: Alert, Oriented x3 Assessment and Plan - Assessment and Plan (Free Text) Plan: diverticulitis,better.ct iv antibiotics.hopefully d/c in am
[2018-02-17] MEDS: Piperacillin/Tazobact 3.375 GM in Sodium Chloride 100 ML IVPB SCH ×2 (06:12→14:04)
[2018-02-17 08:05] VITALS: BP 142/82; PULSE 73; TEMP 99.1; O2SAT 96
[2018-02-17] MEDS: (Novolin R) Insulin Human Regular 100 units/ml vial SC SCH ×2 (08:30→11:38)
[2018-02-17] MEDS: Pantoprazole 40 mg EC Tab PO SCH (09:05)
[2018-02-17] MEDS: Metoprolol Succinate 25 mg XL Tab PO SCH (09:05)
[2018-02-17 11:41] LABS: BLOOD UREA NITROGEN 11 mg/dL (9-20); CALCIUM 9.5 mg/dl (8.6-10.4); GFR NON-AFRICAN AMERICAN > 60
[2018-02-17] MEDS ORDERED: Pneumococcal 23-Valent Vaccine IM ONE (14:18)
--- NOTE | 2018-02-18 03:00 | DS ---
HISTORY OF PRESENT ILLNESS AND HOSPITAL COURSE: A 57-year-old gentleman was brought in with abdominal pain. He was found to have acute diverticulitis, sigmoid. IV fluids were given and IV antibiotics with improvement. Surgical consultation with Dr. Hawk and GI consultation with Dr. Loving followup was requested. Both have seen him before. Recommended medical treatment. IV fluids were given. The patient felt better. He is doing stable now. Vital signs are okay. White count is normal. He is afebrile. Belly is soft. He is moving his bowel. Routine labs are acceptable. CAT scan confirmed diverticulitis, no perforation. At this point, we will discharge to be continued on Cipro 500 mg p.o. twice a day and Flagyl 500 mg three times a day for 10 days. He will follow up with Dr. Loving and myself. Care of plan was explained to the patient and his family. His was at the bedside. FINAL DIAGNOSES: Acute diverticulitis, hypertension, and diabetes. PLAN: We will continue with his blood pressure medications and diabetic medications. Humberto Riggins MD
== END 2018-02-17 15:00 | disposition home or self-care (01) | DRG 392 ==
LOC: C.ER 08:45 → C.9E 11:49 → C.3T 14:47
PROVIDERS: ADMIT Internal Medicine Cardiovascular Disease; ATTEND Internal Medicine Cardiovascular Disease
DX: K57.32 Diverticulitis of large intestine without perforation or abscess without bleeding (principal); D72.829 Elevated white blood cell count, unspecified; E11.9 Type 2 diabetes mellitus without complications; I10 Essential (primary) hypertension; K59.00 Constipation, unspecified; G47.30 Sleep apnea, unspecified; E78.00 Pure hypercholesterolemia, unspecified; Z87.891 Personal history of nicotine dependence; Z82.49 Family history of ischemic heart disease and other diseases of the circulatory system; Z83.3 Family history of diabetes mellitus